=== PATIENT | female | born 1950 | race African-American/Black ===

== ENCOUNTER 2016-07-13 17:27 | Emergency (ER) | payer OTHER ==
[~2016-07-13] VITALS: Ht 162.6 cm; Wt 66.0 kg
[~2016-07-13 17:27] MED LIST: ATEN-102 PO; ATOR40TA PO; CINN500C7 PO; FENU610C; GLIP5 PO; GLUCTAB PO; LORTA5 PO; ZOFR4TAB3 SL
[2016-07-13 17:37] VITALS: BP 146/78; PULSE 58; RESP 16; TEMP 98.6; O2SAT 100
[2016-07-13] MEDS ORDERED: PIOG15TA5 PO (18:00)
[2016-07-13] MEDS ORDERED: SIMV5TAB3 PO (18:00)
[2016-07-13] MEDS ORDERED: METF500T PO (18:00)
[2016-07-13] MEDS ORDERED: ATEN25TA PO (18:00)
[2016-07-13] MEDS ORDERED: KETOROLAC TROMETHAMINE 60 MG/2 ML (IM) VIAL IM ONE (18:15)
--- NOTE | 2016-07-13 18:18 | PD ---
HPI Chief Complaint: Pain: Acute or Chronic Time Seen by Provider: 18:06 Travel History International Travel<30 days: No Contact w/Intl Traveler<30days: No Traveled to known affect area: No History of Present Illness HPI The patient was seen and examined in the presence of the nurse. This patient complains of cramping pain for 3 days. It's located in her left arm and left leg and left side of her neck and face. No muscle weakness or sensory loss or paresthesia. No injury. Symptoms severity is mild. she has not tried anything for it PFSH Past Medical History Arthritis: No Asthma: No Heart Rhythm Problems: No Cancer: No High Cholesterol: Yes Chest Pain: Yes (ONCE WENT TO ER FOR CHEST PAIN) COPD: No Cerebrovascular Accident: No Diabetes: Yes Patient Takes Glucophage: Yes Diminished Hearing: No GERD: Yes Genitourinary: No Headaches: Yes Hepatitis: No Hypertension: Yes Immune Disorder: No Kidney Stones: Yes ("feb 15"2008 "not big stone") Psychiatric: No Reproductive: Yes (ECTOPIC ) Respiratory: No Migraines: No Myocardial Infarction: No Renal Failure: No Seizures: No Sleep Apnea: No Ulcer: No Menopausal: Yes : 8 Para: 4 Miscarriage: 0 : 3 Ectopic : Yes ("one") Past Surgical History Abdominal Surgery: Yes (ECTOPIC ) Appendectomy: No Cardiac Surgery: No Cholecystectomy: No Ear Surgery: No Endocrine Surgery: No Eye Surgery: No Genitourinary Surgery: No Gynecologic Surgery: Yes (ECTOPIC ) Oral Surgery: No Thoracic Surgery: No Social History Alcohol Use: No Tobacco Use: No Substance Use: No Allergies-Medications (Allergen,Severity, Reaction): Coded Allergies: No Known Allergies (Verified , 07/13/16) Reported Meds & Prescriptions Reported Meds & Active Scripts Active Reported Simvastatin 5 Mg Tab 5 Mg PO DAILY Atenolol 25 Mg Tab 25 Mg PO DAILY Metformin (Metformin HCl) 500 Mg Tab 500 Mg PO BIDPC With meals Pioglitazone (Pioglitazone HCl) 15 Mg Tab 15 Mg PO DAILY Review of Systems General / Constitutional: No: Fever HENT: No: Headaches Cardiovascular: No: Chest Pain or Discomfort Respiratory: No: Cough Physical Exam Narrative NEUROLOGICAL: Awake and alert. Pupils are equal round and reactive. Motor and sensory grossly within normal limits. Five out of 5 muscle strength in all muscle groups. Normal speech. NECK: Symmetrical appearance, midline trachea. No mass or crepitus. Thyroid without enlargement, tenderness, or mass. SKIN: Inspection shows no rash or ulcers. Palpation shows no induration or nodules. Data Data Last Documented VS Vital Signs Date Time Temp Pulse Resp B/P Pulse Ox O2 Delivery O2 Flow Rate FiO2 07/13/16 17:37 98.6 58 16 146/78 100 MDM Medical Decision Making Medical Screen Exam Complete: Yes Emergency Medical Condition: Yes Medical Record Reviewed: Yes Differential Diagnosis Myalgias, fibromyalgia, muscle strain Narrative Course I have reviewed the patient's electronic medical record. Patient has an atypical presentation with diffuse left-sided cramping pain. She appears minimally symptomatic. Normal vital signs, no objective findings. Toradol injection given and primary care follow-up recommended Diagnosis Primary Impression: Myalgia Additional Instructions: The patient was advised to follow up with their physician and return if they worsen. Med/Other Pt SpecificInfo: Other Disposition: 01 DISCHARGE HOME Condition: Stable Ronaldo Rose MD Jul 13, 2016 18:18
== END 2016-07-13 21:15 | disposition home or self-care (01) ==
LOC: PHED 17:27
DX: M79.1 Myalgia (principal)
CPT/HCPCS: 96372; 99283; J1885